=== PATIENT | male | born 1975 | race Caucasian/White ===

== ENCOUNTER → 2021-09-14 10:06 | Outpatient (CLI) | payer OTHER, SELFPAY ==
--- NOTE | 2021-09-14 10:34 | MRI_ITS ---
STUDY: MRI LEFT SHOULDER REASON FOR EXAM: Male, 46 years old. PAIN TECHNIQUE: Standardized fat and water weighted pulse sequences were obtained in all 3 orthogonal planes. COMPARISON: None. FINDINGS: Mild supraspinatus and infraspinatus tendinosis with peritendinitis (coronal images 9 through 15 series 5). No rotator cuff tear. Normal subscapularis tendon. Normal teres minor tendon. Severe teres minor muscle atrophy (sagittal image 7 series 6). Remainder the rotator cuff muscles unremarkable. Normal intracapsular long biceps tendon. Biceps labral anchor intact. Small superior anterior labral tear (coronal image 13 series 5 and axial image 11 and 12 series 2) with 8 mm x 6 mm labral cyst. Capsular ligaments intact with mild thickening/redundancy (coronal image 9 series 4/5). Normal rotator cuff interval. Glenohumeral cartilage preserved. Mild acromioclavicular joint arthrosis. Minimal anterior interval narrowing. No acute fracture, dislocation or cortical destruction. Glenohumeral joint fluid physiologic. No subacromial or subdeltoid bursitis. Normal axillary space. Normal deltoid muscle. Normal trapezius muscle. 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
== END ==
DX: M25.512 Pain in left shoulder (principal)
CPT/HCPCS: 73221